=== PATIENT | female | born 1980 | race Caucasian/White ===

== ENCOUNTER → 2016-11-04 | Outpatient (CLI) | payer OTHER ==
--- NOTE | 2016-11-04 15:03 | US ---
November 04, [address] Geoffrey Dill, Thank you for requesting consultation and a detailed obstetrical ultrasound for Mrs. Tanner secondar y to advanced maternal age. As you know, Dinorah is a 36 year old G 4, P 1021 . Her due date is 03/06 02/19 by 13 week ultrasound (7 days different than her prior dating). Her current gestational age bas ed on this dating is 20 weeks 4 days. Her genetic screening revealed a reassuring first Trimester sc reen and normal MSAFP levels. ULTRASOUND Number of fetuses: 1 Placental location: Anterior; no evidence of previa Placental cord insertion: Eccentric, intraplacental presentation: Cephalic Cervix: 4.1 cm viewed transabdominally Maximum Vertical Pocket: 4.1 cm The adnexa were evaluated. No pathology was seen. Right ovary is visualized with an unresolved corpus luteum. The ovary measures 2.8 x 1.3 x 2.0 cm. Th e corpus luteum measures 1.4 x 1.0 x 1.3 cm. Left ovary is visualized and appears normal. It measures 2.4 x 1.4 x 2.5 cm. MEASUREMENTS: Biparietal diameter: 47 mm 20 weeks, 1 days Head circumference: 180 mm 20 weeks, 3 days Abdominal circumference: 168 mm 21 weeks, 6 days Femur length: 32 mm 20 weeks, 0 days Humerus length: 29 mm 19 weeks, 5 days Transcerebellar diameter: 22 mm 20 weeks, 5 days Average ultrasound age: 20 weeks, 5 days Estimated weight: 381 gm weight percentile: 60% ANATOMY Supratentorial brain: Normal including views of the falx, cavum septum pellucidum and choroids Lateral Ventricle: Normal, measuring 4.7 mm Posterior fossa: Normal including the cerebellum and cisterna magna Spine: Normal Nuchal fold: 4.3 mm normal Face: Normal views of the lip and nose area Profile: Normal Palate: Normal appearance of the alveolar ridge Cardiac Exam: Four chamber view of the heart: Normal including intraventricular septum Left Ventricular Outflow Tract: Normal Right Ventricular Outflow Tract: Normal 3 Vessel View: Normal Tracheal View: Normal Aortic Arch: Normal Ductal Arch: Normal SVC/IVC: Normal Heart Rate: 134 bpm Diaphragm: No overt abnormalities have been detected Stomach: Normal Umbilical cord insertion: Normal Right kidney: Normal Left kidney: Normal Bladder: Normal Number of cord vessels: Three Upper extremities: Normal including the number, and architecture Lower extremities: Normal including the number and architecture Gender: Female TRISOMY 21 MARKERS Nuchal fold: 4.3 mm Nasal bone: 5.1 mm Echogenic Bowel: No Femur Lengths Shortened: No Humerus Lengths Shortened: No Pyelectasis: No EIF Present: No IMPRESSION: 1. Intrauterine at 20 w 4 d, CRYSTAL of 03/20/17. This is consistent with her previously esta blished dates. 2. Today's sonogram reveals a normal appearing fetus. 3. Cervical length measures 4.1 cm, and is without evidence of insufficiency. 4. Advanced maternal age 5. Father of with known VSD; septum appears intact today. RECOMMENDATIONS: I was pleased to review today's ultrasound with your patient. I have reassured her that the gr owth and amniotic fluid volume are appropriate for this gestational age. The detailed anatomic surve y including sonographic markers for Down Syndrome did not reveal any overt abnormalities. Jamia an is aware that ultrasound is a screening tool and cannot provide definitive genetic diagnosis. Bita uld she desire definitive genetic diagnosis, she would need to have a genetic amniocentesis performed . After our discussion regarding the procedure, benefits, risks, alternatives, and limitations to th e information received Dinorah DECLINES amniocentesis. We discussed either a echo or a echo for the baby given the father of the pregnan cy has a VSD. Dr. Monte saw them in their last and they desire evaluatio nIgnacia Khan, my operating room scheduler, will facilitate this next appointment. Thank you for allowing me the opportunity to consult and evaluate your patient. Should you have any questions or concerns please do not hesitate to contact me. This visit was approximately 15 minutes in length with 10 minutes spent in direct face to face consultation reviewing aneuploidy screening ve rsus definitive genetic diagnosis. Sincerely, Lien Al MD Systems Programmer Maternal Medicine Department of Obstetrics & Gynecology [facility]
--- NOTE | 2016-11-04 19:13 | US ---
Complete Detailed Obstetrical Sonography Clinical History: 36-year-old female with advanced maternal age who presents for anatomic scre en and biometry. Technique: A curvilinear 5-megahertz transducer was used to sonographically evaluate the fetus and t he placenta. M-mode Doppler was used. Dr. Lien Al is present. Multiple cine clips are acquired and stored on PACS. Comparison Study: Obstetrical sonography, dated September 12, 2016. LMP: June 13, 2016, indicating an age of 20 weeks, 4 days, and an estimated date of delivery of March 20, 2017. Findings: There is a single viable intrauterine gestation once again identified. The fetus is curre ntly vertex in presentation. The placenta is anteriorly-situated, with no evidence of a previa. The maternal cervical length is measured transabdominally at 4.1 cm. The amniotic fluid volume is appro priate, with a maximal vertical pocket of 4.1 cm. There is a three-vessel cord, with eccentric intra placental insertion. The maternal right ovary measures 2.8 x 1.3 x 2.0 cm, and contains a 1.4 x 1.0 x 1.3 cm corpus luteum cyst. The maternal left ovary measures 2.4 x 1.4 x 2.5 cm. The heart r ate is 134 bpm. The anatomic survey reveals a normal appearance to the supra- and infratentorial structures. T he lateral ventricular diameter is 4.7 mm, the cisterna magna measures 4.1 mm, and the nuchal fold me asures 4.3 mm. The spine is evaluated in sagittal and transverse planes, and appears normal. The fe ana nasal-labial anatomy, sagittal facial profile, and the alveolar ridge are normal. There is a fou r-chambered heart, with right and left ventricular outflow tracts, three-vessel tracheal view, aortic and ductal arch, and inflow tracts. The diaphragm is intact. The stomach, right and left kidneys, urinary bladder, upper and lower extremities, and female gender are documented. biometry is as follows: The biparietal diameter is 47 mm, corresponding to an age of 20 weeks, 1 day, +/- 1 week, 6 days, whi ch is at the 28th percentile. The head circumference is 180 mm, corresponding to an age of 20 weeks, 3 days, +/- 1 week, 4 days, wh ich is at the 33rd percentile. The abdominal circumference is 168 mm, corresponding to an age of 21 weeks, 6 days, +/- 2 weeks, 1 da y, which is at the 81st percentile. The femur length is 32 mm, corresponding to an age of 20 weeks, 0 days, +/- 1 week, 6 days, which is at the 19th percentile. The humerus length is 29 mm, corresponding to an age of 19 weeks, 5 days. The transcerebellar diameter is 22 mm, corresponding to an age of 20 weeks, 5 days, +/- 1 week, 0 day s. The composite gestational age is 20 weeks, 5 days. The estimated weight is 381 gm, +/- 56 gm, which 13 ounces, +/- 2 ounces, which is at the 60th percentile. The head circumference to abdominal circumference ratio measures 1.07. The femur length to biparieta l diameter ratio is 68%, and the femur length to abdominal circumference ratio is 19%. Impression: There is a single viable intrauterine gestation, with no overt structural anomaly, having biometry concordant with menstrual dating and demonstrating appropriate interval growth from September 12, 2016. E:MARÍA/frankie
== END ==
LOC: FIMAGING 13:23
PROVIDERS: ATTEND Obstetrics & Gynecology
DX: Z36 Encounter for antenatal screening of mother (principal); O09.522 Supervision of elderly multigravida, second trimester; Z3A.20 20 weeks gestation of pregnancy

== ENCOUNTER 2017-03-23 15:46 | Inpatient (IN) | payer OTHER ==
[2017-03-23] MEDS ORDERED: EPSOM SALT 454 GM TP PRN (16:42)
[2017-03-23] MEDS ORDERED: TERBUTALINE SULFATE 1 MG/ML VIAL IV PRN (16:42)
[2017-03-23] MEDS ORDERED: OXYTOCIN/RINGERS LACTATE 1,000 ML IV PRN (16:42)
[2017-03-23] MEDS ORDERED: LR 1,000 ML IV PRN (16:42)
[2017-03-23] MEDS ORDERED: OLIVE OIL 118 ML BTL MISC PRN (16:42)
[2017-03-23 17:06] LABS: % IMMATURE GRANULYOCYTES 0.8 % (0.0-1.1); ADD DIFF? NO; ADD MORPH? NO; ADD SCAN? NO; ATYPICAL LYMPHOCYTE FLAG 10 (0-99); FRAGMENT RBC FLAG 0 (0-99); HEMOGLOBIN 12.8 g/dL (12.6-16.3); LEFT SHIFT FLG 0 (0-99); LIPEMIA HEMOLYSIS FLAG 90 (0-99); MEAN CELL HEMOGLOBIN CONCENTR. 34.6 g/dL (32.4-36.7); MEAN CELL VOLUME 86.9 fL (81.5-99.8); MEAN PLATELET VOLUME 12.3 fL (8.7-11.7); PLATELET CLUMPS FLAG 0 (0-99); PLATELET COUNT 162 10^3/uL (150-400); RED BLOOD CELL COUNT 4.26 10^6/uL (4.18-5.33); RED CELL DISTRIBUTION WIDTH 13.3 % (11.5-15.2)
[2017-03-23] MEDS ORDERED: OLIVE OIL 118 ML BTL ONE (17:36)
[2017-03-23] MEDS ORDERED: OXYTOCIN 10 UNIT/ML VIAL ONE (17:36)
[2017-03-23] MEDS ORDERED: MISOPROSTOL 200 MCG TAB ONE (17:36)
[2017-03-23] MEDS ORDERED: TERBUTALINE SULFATE 1 MG/ML VIAL ONE (17:36)
[2017-03-23] MEDS ORDERED: LIDOCAINE 1% 300 MG/30 ML SDV ONE (17:36)
[2017-03-23] MEDS ORDERED: AMMONIA AROMATIC 1 EACH AMP IH ONE (17:36)
--- NOTE | 2017-03-23 18:17 | GHP ---
[f rep st] HISTORY AND PHYSICAL DATE OF ADMISSION: 03/23/2017 CHIEF COMPLAINT: Leakage of fluid. HISTORY OF PRESENT ILLNESS: The patient is a 36-year-old, 4, para 1-0-2 -1 at 40 weeks and 3 days estimated gestational age by first trimester ultrasound 1 week discordant from last menstrual period, who presents with leakage of fluid. She states that around 2:00 p.m. today she noticed that her underwear became moist. She went to the bathroom, and then this occurred again. She has a history of a rapid labor, so she was advised to come to the hospital. At this time, she is complaining of mild uterine contractions that are becoming more intense and ongoing leakage of fluid. She had some bloody show yesterday, but otherwise no vaginal bleeding. She has active movement. She has a history of a vacuum assisted vaginal delivery for non- reassuring heart tones in 2012, followed by 2 miscarriages in 2014. OB LABORATORIES: Notable for: Rh negative, and she did receive RhoGAM at 28 weeks. GBS negative. Rubella immune. Her other labs are all reviewed and are within normal limits. She is advanced maternal age, and she had a normal sequential screen and anatomy ultrasound. PAST MEDICAL HISTORY: Depression. PAST SURGICAL HISTORY: Knee surgery x2. Oral surgery. D and C for miscarriage. FAMILY HISTORY: Noncontributory. SOCIAL HISTORY: She is a graphics software engineer. She is to her partner, Darinel. She denies alcohol, tobacco, or drug use. MEDICATIONS: vitamins. REVIEW OF SYSTEMS: Negative apart from history of present illness. OBJECTIVE: VITAL SIGNS: Blood pressure 113/56, heart rate 70, temperature 37.5. GENERAL: Alert, awake, in mild to moderate distress with contractions, otherwise, comfortable. LUNGS: Respirations nonlabored. CARDIOVASCULAR: Regular rate and rhythm. ABDOMEN: Gravid, soft, nontender. EFW 7 pounds by Josiah's. EXTREMITIES: No edema. PELVIC: Sterile vaginal exam, 9 cm, 100% effaced, bulging bag palpated, vertex presentation. HEART RATE TRACING: Baseline 120 beats per minute. Moderate variability. Positive accelerations. No decelerations. AmniSure test positive. LABORATORY DATA: Hemoglobin 12.8, hematocrit 37, platelets 162. ASSESSMENT AND PLAN: The patient is a 36-year-old, 4, para 1-0-2-1, who presents in active labor with ruptured membranes. She desires an unmedicated delivery. Her group B strep test is negative and up to date. Her plan was reviewed. She declines AROM of forebag at this time, and desires to allow her labor to progress on its own. We will proceed with expectant management. Intermittent heart rate tracing per protocol. Will expect vaginal delivery. /[id number]/MODL MTDD
[2017-03-23] MEDS ORDERED: METHYLERGONOVINE MAL 0.2 MG/ML INJ ONE (18:44)
[2017-03-23] MEDS ORDERED: CEFAZOLIN 2 GM/DEXTROSE/100 ML BAG IV ONE (18:51)
[2017-03-23] MEDS: IBUPROFEN 600 MG TAB PO PRN (18:54)
[2017-03-23] MEDS ORDERED: ceFAZolin 2 GM/DEXTROSE 100 ML IV ONE (19:30)
[2017-03-23] MEDS ORDERED: HYDROCORTISONE 0.5% CREAM TP PRN (19:35)
[2017-03-23] MEDS ORDERED: ACETAMINOPHEN 325 MG TAB PO PRN (19:35)
[2017-03-23] MEDS ORDERED: SIMETHICONE 80 MG TAB CHEW PO PRN (19:35)
[2017-03-23] MEDS ORDERED: HYDROCODONE/APAP 5/325 TAB PO PRN (19:35)
--- NOTE | 2017-03-23 19:39 | OBDEL ---
Info Type: Vaginal (Patient pushed x 2 contractions and delivered viable female with spontaneous cry. Baby resusitated on abdomen. Delayed cord clamping x 5 minutes. IV pitocin start. Fundal massage and gentle cord traction performed. Initially there was good movement of placenta, but then cord avulsion occured. Appeared to have been a membranous insertion. Attempted manual removal but placenta was too high to be reached. Called for US and sveta forceps and removed placenta intact using forceps under direct US guidance. Pt tolerated well. Thin endometrial stripe after placenta removed. Uterus initially boggy after placenta removal, resolved with methergine 0.2 mg x 1 and massage. Small 2nd degree lac repaired in usual fashion with 3-0 vicryl. Total EBL = 300 ml. Mom and baby in good condition. One dose ancef 2 g IV for prophylaxis.) GBS+: No Indications for Delivery: Spontaneous Labor Vaginal Delivery - Labor and Delivery Onset of Contractions Date: 03/23/17 Onset of Contractions Time: 14:30 Onset of Contractions Type: Spontaneous Rupture of Membranes Date: 03/23/17 Rupture of Membranes Time: 14:00 Rupture of Membranes Type: Spontaneous Amniotic Fluid Color: Clear, Meconium Stained (Initially clear. At time of forebag SROM just before delivery meconium noetd.) Dilation Complete Date: 03/23/17 Placenta Delivery Date: 03/23/17 Placenta Delivery Time: 18:44 Total Hours of Labor: 4 Non-surgical Procedures: Other (Specify) (Removal of retained placento) Laceration: 2nd Degree Repair: 3-0 Vaginal Sponge Count Correct: Yes (correct) [place] Data [facility] Delivery Date: 03/23/17 Delivery Time: 18:13 CRYSTAL: 03/20/17 Gestational Age: 40 week(s) and 3 day(s) Sex of : Female Score (1 Min): 9 Score (5 Min): 9 ICD10 Worksheet Patient Problems: Problems Problem Status Onset Retained placenta Acute Vaginal delivery Acute - ICD10 Problem Qualifiers (1) Vaginal delivery (2) Retained placenta Qualifiers: Retained placenta detail: R
--- NOTE | 2017-03-23 19:47 | OBGCSDC ---
General Delivery Information - General Info : 4 Para: 1 Abortions: 2 Delivery Physician/CNM: Lubna Harris Labs: Patient ABO/Rh O NEGATIVE 03/23/17 16:40 Hct 37.0 % (38.0-47.0) L 03/23/17 16:40 Vaginal - Diagnosis Labor: Spontaneous Presentation at Delivery: Vertex Rupture of Membranes Type: Spontaneous Amniotic Fluid Color: Clear, Meconium Stained (Initially clear. At time of forebag SROM just before delivery meconium noetd.) Laceration: 2nd Degree Repair: 3-0, Other (Specify) Delivery Events: Retained Placenta (removed under US guidance with Alistair forceps) - Operations/Procedures Non-surgical Procedures: Other (Specify) (Removal of retained placento) L&D Analgesia/Anesthesia Type: Local - Hospital Course Antepartum: SROM/labor at 40w3d. c/b RH neg s/p Rhogam, h/o miscarriage x 2, h/o VAVD in 2012. AMA with normal genetic screening. Intrapartum: with healthy viable female . Retained placenta 2/2 cord avulsion, c/w membranous cord insertion. Placenta not sent to pathology as patient desired to bring home. Placenta removed under US guidance with zeenat's forceps : Routine pp care. Rh neg, baby also Rh neg, no Rhogam given. Rub immune. BF going well - Delivery Type: Vaginal (Patient pushed x 2 contractions and delivered viable female infant with spontaneous cry. Baby resusitated on abdomen. Delayed cord clamping x 5 minutes. IV pitocin start. Fundal massage and gentle cord traction performed. Initially there was good movement of placenta, but then cord avulsion occured. Appeared to have been a membranous insertion. Attempted manual removal but placenta was too high to be reached. Called for US and alistair forceps and removed placenta intact using forceps under direct US guidance. Pt tolerated well. Thin endometrial stripe after placenta removed. Uterus initially boggy after placenta removal, resolved with methergine 0.2 mg x 1 and massage. Small 2nd degree lac repaired in usual fashion with 3-0 vicryl. Total EBL = 300 ml. Mom and baby in good condition. One dose ancef 2 g IV for prophylaxis.) Non-surgical Procedures: Other (Specify) (Removal of retained placento) Data Russell Delivery Date: 03/23/17 Delivery Time: 18:13 CRYSTAL: 03/20/17 Gestational Age: 40 week(s) and 5 day(s) Sex of : Female Score (1 Min): 9 Score (5 Min): 9 Discharge Information - Discharge Information Discharge Medications: Ibuprofen Condition: Good Instruction/Follow Up: Two Weeks Discharge Physician/CNM: Lubna Harris
[2017-03-23] MEDS ORDERED: OXYTOCIN/RINGERS LACTATE 1,000 ML IV SCH (20:00)
[2017-03-24] MEDS: IBUPROFEN 600 MG TAB PO PRN ×4 (00:56→19:31)
[2017-03-24] MEDS: DOCUSATE SODIUM 100 MG CAP PO PRN ×2 (08:12→19:30)
--- NOTE | 2017-03-24 19:08 | OBPP ---
Progress Note Assessment/Plan: Assessment: 36 P2 s/p complicated by retained placenta requiring extraction, doing well. Plan: 03/24/17 19:06 Doing well, no bleeding issues. Rh neg, rhogam as indicated. Home tomorrow. Subjective: 36 P2 s/p complicated by retained placenta requiring extraction, doing well , bleeding minimal, no abdominal pain. Objective: 03/24/17 00:45 Patient ABO/Rh O NEGATIVE 03/23/17 16:40 Temp Pulse Resp BP Pulse Ox 36.8 C 78 16 108/70 94 03/24/17 08:00 03/24/17 08:00 03/24/17 08:00 03/24/17 08:00 03/24/17 08:00 Uterine Position/Fundal Height: Umbilicus -3 Uterine Tone: Firm
[2017-03-25] MEDS: IBUPROFEN 600 MG TAB PO PRN ×2 (04:48→11:40)
[2017-03-25] MEDS: DOCUSATE SODIUM 100 MG CAP PO PRN (11:40)
[2017-03-25 13:06] VITALS: BP 107/66; PULSE 83; RESP 14; TEMP 98.6; O2SAT 95
== END 2017-03-25 14:09 | disposition home or self-care (01) | DRG 767 ==
LOC: FLD 15:46 → FOB 21:35
PROVIDERS: ADMIT Obstetrics & Gynecology; ATTEND Obstetrics & Gynecology
PROC: 0KQM0ZZ Repair Perineum Muscle, Open Approach (ICD-10-PCS; principal; 2017-03-23)
PROC: 10E0XZZ Delivery of Products of Conception, External Approach (ICD-10-PCS; principal; 2017-03-23)
PROC: 10D17ZZ Extraction of Products of Conception, Retained, Via Natural or Artificial Opening (ICD-10-PCS; principal; 2017-03-23)
DX: O48.0 Post-term pregnancy (principal); O70.1 Second degree perineal laceration during delivery; O73.0 Retained placenta without hemorrhage; O77.0 Labor and delivery complicated by meconium in amniotic fluid; O26.893 Other specified pregnancy related conditions, third trimester; Z3A.40 40 weeks gestation of pregnancy; Z37.0 Single live birth
CPT/HCPCS: J0690; J2210; J2590; J3105

== ENCOUNTER 2017-04-30 11:02 | Emergency (ER) | payer OTHER ==
[2017-04-30 11:15] VITALS: TEMP 98.6
[2017-04-30] MEDS ORDERED: NS 1,000 ML IV ONE (11:15)
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
[2017-04-30] MEDS ORDERED: IOPAMIDOL (ISOVUE 370) 100 ML BTL IV ONE (11:56)
[2017-04-30 13:20] VITALS: BP 133/84; PULSE 66; RESP 18; O2SAT 96
== END 2017-04-30 14:07 | disposition home or self-care (01) ==
LOC: EDUNIT#
DX: S16.1XXA Strain of muscle, fascia and tendon at neck level, initial encounter (principal); S09.90XA Unspecified injury of head, initial encounter; V49.49XA Driver injured in collision with other motor vehicles in traffic accident, initial encounter; Y92.410 Unspecified street and highway as the place of occurrence of the external cause; Y99.8 Other external cause status; Y93.89 Activity, other specified
CPT/HCPCS: 82947-QW; Q9967